=== PATIENT | female | born 1990 | race Caucasian/White ===

== ENCOUNTER 2022-07-13 08:37 | Outpatient (CLI) | payer OTHER, SELFPAY ==
--- NOTE | ~2022-07-13 | US_ITS ---
EXAMINATION: US thyroid DATE: 07/13/2022 09:46 INDICATION: Thyroid nodules. TECHNIQUE: Multiple ultrasound images of the thyroid were obtained. COMPARISON: None. FINDINGS: The right thyroid lobe measures 4.2 x 1.1 x 1.8 cm. The left thyroid lobe measures 4.5 x 1.5 x 1.6 c m. The thyroid demonstrates heterogeneous hypoechogenicity. Vascularity is increased. No discrete no dule. IMPRESSION: 1. Heterogeneous, hypervascular thyroid, consistent with chronic lymphocytic (Saundra) thyroiditis. Reviewed, dictated and finalized at location A. UITMENT MANAGER IMPRESSION: 1. Heterogeneous, hypervascular thyroid, consistent with chronic lymphocytic (H ashimoto) thyroiditis.
== END 2022-07-13 08:38 | disposition home or self-care (01) ==
LOC: CHSIMG 08:40
PROVIDERS: PCP Internal Medicine; Visit Provider Internal Medicine
DX: E04.1 Nontoxic single thyroid nodule (principal)
CPT/HCPCS: 76536

== ENCOUNTER 2022-10-04 14:58 | Outpatient (CLI) | payer OTHER, SELFPAY ==
--- NOTE | ~2022-10-04 | US_ITS ---
EXAMINATION: US soft tissue head and neck DATE: 10/04/2022 15:21 INDICATION: Left submandibular mass. TECHNIQUE: Multiple grayscale and Doppler ultrasound images of the neck were obtained. COMPARISON: None FINDINGS: The submandibular glands are normal. There is no abnormal mass or lymphadenopathy. IMPRESSION: 1. No abnormal mass or lymphadenopathy. Reviewed, dictated and finalized at location A. GER TRANSFUSION
== END 2022-10-04 14:59 | disposition home or self-care (01) ==
LOC: CHSIMG 14:59
PROVIDERS: PCP Internal Medicine; Visit Provider Internal Medicine
DX: R59.0 Localized enlarged lymph nodes (principal)
CPT/HCPCS: 76536

== ENCOUNTER 2023-02-27 08:26 | Outpatient (CLI) | payer BC, SELFPAY | END 2023-02-27 08:27 | disposition home or self-care (01) | LOC: CHSLAB 08:29 | PROVIDERS: PCP Internal Medicine; Visit Provider Obstetrics & Gynecology | DX: O20.9 Hemorrhage in early pregnancy, unspecified (principal); Z3A.00 Weeks of gestation of pregnancy not specified | CPT/HCPCS: 36415; 84144; 84702 ==

== ENCOUNTER 2023-02-28 09:14 | Outpatient (CLI) | payer BC, SELFPAY ==
--- NOTE | ~2023-02-28 | US_ITS ---
EXAMINATION: US OB <=14 wk fetus w TV DATE: 02/28/2023 10:29 INDICATION: with inconclusive viability, first trimester TECHNIQUE: Real-time pelvic transabdominal and transvaginal ultrasound was performed. COMPARISON: None. FINDINGS: The uterus measures 8.5 x 6.8 x 5.0 cm. There is an intrauterine gestational sac. A yolk sa c is identified. heart motion is identified measuring 139 beats per minute (bpm) by M-mode Dopp ler. The crown rump length measures 9 mm, which correlates with an estimated gestational age of 7 weeks and 0 day(s) (+/-) 3 day(s). The right ovary measures 2.6 x 2.6 x 1.7 cm. The left ovary measures 3.0 x 2.0 x 2.8 cm. There is nor mal vascular flow in the ovaries. There is no free fluid in the pelvis. IMPRESSION: 1. Live intrauterine with an estimated gestational age of 7 weeks and 0 day(s) (+/-) 3 day( s) and an estimated delivery date of 10/17/2023. Reviewed, dictated and finalized at location L. IMPRESSION: 1. Live intrauterine with an estimated gestational age of 7 weeks and 0 day(s) (+/-) 3 day(s) and an estimated delivery date of 10/17/2023.
== END 2023-02-28 09:15 | disposition home or self-care (01) ==
LOC: CHSLAB 09:18
PROVIDERS: PCP Internal Medicine; Visit Provider Obstetrics & Gynecology
DX: O36.80X0 Pregnancy with inconclusive fetal viability, not applicable or unspecified (principal); O20.9 Hemorrhage in early pregnancy, unspecified; Z3A.01 Less than 8 weeks gestation of pregnancy
CPT/HCPCS: 36415; 76801; 76817; 86850; 86900; 86901

== ENCOUNTER 2023-06-02 15:45 | Outpatient (CLI) | payer BC, SELFPAY ==
[2023-06-02 16:26] LABS: Thyroid Stimulating Hormone 0.14 uIU/mL (0.36-3.74)
[2023-06-08 14:50] LABS: T4 Thyroxine 16.6 mcg/dL (5.9-10.3)
== END 2023-06-02 15:46 | disposition home or self-care (01) ==
LOC: CHSLAB 15:49
PROVIDERS: PCP Internal Medicine
DX: Z34.90 Encounter for supervision of normal pregnancy, unspecified, unspecified trimester (principal); E03.9 Hypothyroidism, unspecified; E06.3 Autoimmune thyroiditis
CPT/HCPCS: 36415; 84436; 84443

== ENCOUNTER 2023-07-24 09:52 | Outpatient (CLI) | payer BC, SELFPAY ==
[2023-07-24 11:12] LABS: Basophils Absolute Auto 0.01 K/mm3 (0.00-0.10); Basophils Percent Auto 0.1 % (0.0-1.0); Eosinophils Absolute Auto 0.03 K/mm3 (0.02-0.50); Eosinophils Percent Auto 0.3 % (1.0-6.0); Hematocrit 37.5 % (35.0-49.0); Immature Granulocyte Absolute 0.08 K/mm3 (0.00-0.00); Immature Granulocyte Percent A 0.8 % (0.0-0.0); Lymphocytes Absolute Auto 1.39 K/mm3 (1.10-4.50); Lymphocytes Percent Auto 13.9 % (18.0-42.0); Mean Corpuscular Hemoglobin 28.6 pg (27.0-31.0); Mean Corpuscular Volume 89.3 fL (78.0-102.0); Mean Platelet Volume 9.6 fl (9.2-11.8); Monocytes Absolute Auto 0.66 K/mm3 (0.10-0.90); Monocytes Percent Auto 6.6 % (2.0-11.0); Neutrophils Absolute Auto 7.8 K/mm3 (1.7-7.2); Neutrophils Percent Auto 78.3 % (50.0-70.0); Platelet Count Result 288 K/mm3 (150-420); Red Cell Distribution Width 14.1 % (11.6-14.4)
[2023-07-24 11:52] LABS: Thyroid Stimulating Hormone 0.73 uIU/mL (0.36-3.74)
[2023-07-24 11:57] LABS: Glucose 1 Hour PP 50gm Dose 96 mg/dL (70-130)
[2023-07-24 11:58] LABS: HIV 1 P24 AG Negative (Negative); HIV 1/2 AB Negative (Negative)
[2023-07-25 14:21] LABS: Free T3 2.47 pg/mL (2.18-3.98)
== END 2023-07-24 09:53 | disposition home or self-care (01) ==
LOC: CHSLAB 09:53
PROVIDERS: PCP Internal Medicine; Visit Provider Obstetrics & Gynecology
DX: Z34.90 Encounter for supervision of normal pregnancy, unspecified, unspecified trimester (principal); E03.9 Hypothyroidism, unspecified
CPT/HCPCS: 36415; 82947; 84439; 84443; 84481; 85025; 87806

== ENCOUNTER 2023-10-18 17:07 | Inpatient (IN) | payer BC, SELFPAY ==
[2023-10-18] VITALS (10 sets, daily range): BP systolic 118–132; BP diastolic 75–87; PULSE 84–95; TEMP 36.6; BMI 31.8
--- NOTE | 2023-10-18 17:39 | LDADM ---
This patient, Emilee Amado, was admitted to Labor/Delivery/Recovery 104 on 10/18/23 at 17:07. Plans for labor, pain management and were discussed with patient. Patient/family oriented to hospital policies and general routines including ID bracelet, bed and alarms, visiting hours, pain management, procedures, bathroom and other care routines, personal items, smoking policy, room service/diet and guest tray routines, infant security routines, and visiting hours. Patient/Family are encouraged to report perceived risks to care and to ask questions if they do not understand what they are told or what they should do. See OBIX for further documentation.
[2023-10-18] MEDS: DINOPROSTONE 10 MG VAG INSERT VAGINAL (18:11)
--- NOTE | 2023-10-18 18:20 | P.PNAN_ITS ---
Anes - Eval Pre Procedure Procedure: Labor epidural Date/Time: 10/18/23 18:20 Surgeon: Barrera Preop Diagnosis: Abdominal pain with contractions Pre Op Diagnosis: IOL Patient Data Age: 33 Gender: F Height: 1.75 m Weight: 98 kg Last Vital Signs Pulse 88 10/18/23 18:16 BP 132/83 10/18/23 18:16 O2 Del Method Room Air 10/18/23 17:38 Allergies Allergy/AdvReac Type Severity Reaction Status Date / Time No Known Allergies Allergy Verified 10/17/23 10:09 Home Medications Medication Instructions Recorded Confirmed Type levothyroxine 125 mcg capsule 137 mcg PO DAILY 08/03/22 10/18/23 History docosahexaenoic acid 200 mg mg PO 03/06/23 10/17/23 History capsule ( DHA) aspirin 81 mg tablet,delayed 81 mg PO DAILY #90 tabs 03/30/23 10/18/23 Rx release prenat.vits,kelly,faf-yyrv-jadju tablet 09/21/23 10/17/23 History : gestational age HCG: positive Patient hx anesthesia problems: none Family hx anesthesia problems: none Results Review: All pre-operative results and documents have been reviewed as part of the pre- operative evaluation. [facility] Past Medical History Medical History Adult hypothyroidism Degenerative disk disease Obesity Surgical History Surgical History No significant past surgical history Family History Family History Grandparent Diabetes mellitus Heart disease Hypertension Mother Diabetes mellitus Hypertension High cholesterol Social History Social History Smoking status: Never smoker Alcohol intake: never Drinks per week: 0 Substance use: never Do You Feel Safe in your Home?: Yes Lack of Transportation: No Lack of Food: Never True Current Housing: I Have Housing Concerned About Future Housing: No Difficulty Paying Gas/Electric Bills: No Difficulty Paying for Meds: No Currently Unemployed: No Education: Master's Degree or Higher Difficulty w/ Childcare or Family Care: No Living arrangements: with family Occupation/Education: occupation 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
[2023-10-18 18:25] LABS: Basophils Percent Auto 0.2 % (0.2-1.2); Eosinophils Absolute Auto 0.1 K/mm3 (0-0.3); Eosinophils Percent Auto 0.5 % (0-4.4); Hematocrit 40.7 % (37.0-47.0); Hemoglobin 12.8 g/dL (12.0-15.0); Immature Granulocyte Absolute 0.07 K/mm3 (0.00-0.031); Immature Granulocyte Percent A 0.6 % (0-0.5); Lymphocytes Absolute Auto 2.97 K/mm3 (0.9-3.2); Lymphocytes Percent Auto 23.6 % (18.3-44.2); Mean Corpuscular HGB Conc 31.4 g/dl (32-36); Mean Corpuscular Hemoglobin 27.4 pg (26-34); Mean Corpuscular Volume 87.2 fl (80-100); Monocytes Absolute Auto 0.9 K/mm3 (0.1-0.6); Monocytes Percent Auto 7.1 % (2.6-8.5); Neutrophils Absolute Auto 8.5 K/mm3 (1.3-6.7); Platelet Count Result 373 k/mm3 (150-375); Red Blood Count 4.67 M/mm3 (4.2-5.4); Red Cell Distribution Width 15.7 % (11.5-14.5); White Blood Count 12.6 K/mm3 (4.5-10.0)
[2023-10-19] VITALS (27 sets, daily range): BP systolic 105–148; BP diastolic 60–115; PULSE 91–129; RESP 18; TEMP 36.2–36.9; O2SAT 10–100
--- NOTE | 2023-10-19 06:39 | PM.IMHP ---
H&P: HPI History of Present Illness Date/Time: 10/19/23 07:15 Chief Complaint: Induction of labor Narrative: Emilee is a 33yo @ 41.0wks who presented for IOL. She received cervidil for cervical ripening overnight. She reports good movement. No VB or LOF. Her is complicated by: - Hypothyroidism on levothyroxine and ASA Review of Systems Constitutional: Constitutional: Denies chills, Denies fever(s) and Denies headache(s) Eyes: Eyes: Denies change in vision ENT: Denies headache(s) Cardiovascular: Cardiovascular: Denies chest pain and Denies dyspnea Respiratory: Respiratory: Denies dyspnea Genitourinary: Genitourinary: Denies abnormal vaginal bleeding and Denies vaginal discharge Neurologic: Denies headache(s) Psychiatric: Psychiatric: Denies anxiety and Denies depression [facility] Past Medical History Medical History Adult hypothyroidism Degenerative disk disease Obesity Surgical History Surgical History No significant past surgical history Family History Family History Grandparent Diabetes mellitus Heart disease Hypertension Mother Diabetes mellitus Hypertension High cholesterol Social History Social History Smoking status: Never smoker Alcohol intake: never Drinks per week: 0 Substance use: never Do You Feel Safe in your Home?: Yes Lack of Transportation: No Lack of Food: Never True Current Housing: I Have Housing Concerned About Future Housing: No Difficulty Paying Gas/Electric Bills: No Difficulty Paying for Meds: No Currently Unemployed: No Education: Master's Degree or Higher Difficulty w/ Childcare or Family Care: No Living arrangements: with family Occupation/Education: occupation 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 Gender identity (if verbalized by the patient): Female Sexual Orientation (if Verbalized by the Patient): Straight or Heterosexual Spiritual care concerns: No Meds Home Medications and Allergies Home Medications Medication Instructions Recorded Confirmed Type levothyroxine 125 mcg capsule 137 mcg PO DAILY 08/03/22 10/18/23 History docosahexaenoic acid 200 mg mg PO 03/06/23 10/17/23 History capsule ( DHA) aspirin 81 mg tablet,delayed 81 mg PO DAILY #90 tabs 03/30/23 10/18/23 Rx release prenat.vits,kelly,gpl-demr-pehat tablet 09/21/23 10/17/23 History Allergies Allergy/AdvReac Type Severity Reaction Status Date / Time No Known Allergies Allergy Verified 10/17/23 10:09 Vital Signs Vital Signs - 24 hr 10/18/23 17:38 10/18/23 18:16 10/18/23 18:31 Pulse Rate 88 90 Blood Pressure 132/83 124/85 Oxygen Delivery Room Air 10/18/23 18:46 10/18/23 19:01 10/18/23 19:16 Pulse Rate 84 84 85 Blood Pressure 118/75 123/81 129/81 Oxygen Delivery 10/18/23 19:31 10/18/23 19:46 Pulse Rate 95 88 Blood Pressure 130/85 127/87 Oxygen Delivery Exam Const: General: cooperative, no acute distress and obese Nutritional Appearance: obese Orientation/consciousness: patient oriented x3 Resp: Effort & Inspection: normal respiratory effort Cardio: Rate: regular rate GI: GI Palp: No abdominal tenderness : Other: FHT's: 130's/ mod betsy/ + accels/ no decels - cat 1 TOCO: ctxs q3min Cervix: 3/80/-2 Membranes: AROM, thin mec 0715 Presentation: cephalic Skin: General skin exam: normal color Neuro: General: patient oriented x3 Extrem: General: normal to inspection Psych: Appearance: grossly normal Affect: normal affect Attitude: cooperative H&P: Results Labs Labs: Short CBC 10/18/23 Range/Units 17:26 WBC 12.6 H (4.5-10.0) K/mm3 Hgb 12.8 (12.0-15.0) g/dL Hct 40.7 (37.0-47.0) % Plt Count
[2023-10-19] MEDS: LACTATED RINGERS 1,000 ML 125 ML IV CONT (07:25)
[2023-10-19] MEDS: OXYTOCIN 30 UNITS/NS 500 ML 30 UNITS/500 ML BAG 6 UNITS IV CONT (07:25)
[2023-10-19] MEDS: LEVOTHYROXINE SODIUM 112 MCG, LEVOTHYROXINE SODIUM 25 MCG 137 MCG PO (07:26)
[2023-10-19] MEDS: LIDOCAINE HCL 1% LOCAL INJ 20 ML VIAL (13:42)
[2023-10-19] MEDS: OXYTOCIN 30 UNITS/NS 500 ML 30 UNITS/500 ML BAG 125 UNITS IV CONT (14:02)
--- NOTE | 2023-10-19 14:20 | P.PCNOB_ITS ---
OB - Vaginal Delivery Note Procedure Delivery date: 10/19/23 Events: Other (Induction for late term) Induction method: Per Cervidil Protocol Delivery augmentation: Rupture of Membranes and Pitocin Delivery monitor: External FHT and External Uterine Route of delivery: Episiotomy description: None Laceration Description: Perineal - 2nd Degree Delivery repair: vicryl Specimen: Yes (placenta) Quantitative Blood Loss (ml): 300 Anesthesia type: Local Disposition: Floor Complications: No immediate complications Baby Date of : 10/19/23 Time of : 13:28 Weeks of gestation at delivery: 41 Infant gender: Male Weight (pounds): 8 Weight (ounces): 12 presentation: vertex (right hand by face) position: Right Occiput Anterior Placenta delivery description: Expressed Cord Vessel Description: 3 Vessels and Delayed Cord Clamping score one minute: 8 score five minutes: 9 Narrative: Emilee rapidly progressed to 9 cm and began having the urge to push. She did not have an epidural, but controlled her pain/breathing until she was fully dilated. She pushed with great maternal effort for approximately 1.5 hours. She delivered the 's head over intact perineum and no nuchal cord was palpated. She easily delivered the 's shoulders and body without complication. Thick meconium was noted and the pediatric team was at bedside. He was immediately placed skin to skin and had spontaneous cry, therefore the pediatric team did bulb suction his mouth and nose. Delayed cord clamping was performed. The umbilical cord was then doubly clamped and cut. A segment of the cord was collected for cord gases. The remaining cord blood was collected for typing. With Pitocin running and gentle downward traction on the cord, the placenta delivered without complications. She was examined and a smal l second-degree perineal laceration was identified. She was anesthetized with 1% lidocaine without epinephrine and the laceration was repaired in the normal fashion using 2-0 Vicryl. Slight increase in bleeding was noted, therefore bimanual massage was performed and uterine sweep removed a couple clots. The uterus was then noted to be firm with minimal bleeding. Sponge, lap, instrument, and needle counts were correct at the end of the procedure. Mom and baby were left bonding in the birthing suite in stable condition. [facility] Delivery Billing Delivery Delivery: Delivery Charge
[2023-10-19 15:12] LABS: Rapid Plasma Reagin Non-Reactive (NonReactive)
[2023-10-19] MEDS: BENZOCAINE 20% AER SPR (*SP) 56 GM CAN 1 SPRAY TOPICAL (15:45)
[2023-10-19] MEDS: WITCH HAZEL 40 PADS 1 PAD TOPICAL (15:45)
[2023-10-19] MEDS: DOCUSATE SODIUM 100 MG CAPSULE PO (20:06)
[2023-10-19] MEDS: ACETAMINOPHEN 325 MG TABLET 650 MG PO (20:06)
[2023-10-19] MEDS: IBUPROFEN 600 MG TABLET PO (20:07)
[2023-10-19] MEDS: LANOLIN (LANSINOH) 7.5 GM CREAM 1 APPLIC TOPICAL (20:08)
[2023-10-20 04:20] VITALS: BP 122/74; PULSE 94; RESP 18; TEMP 36.7; O2SAT 100
[2023-10-20] MEDS: IBUPROFEN 600 MG TABLET PO ×3 (04:25→23:45)
[2023-10-20] MEDS: ACETAMINOPHEN 325 MG TABLET 650 MG PO ×3 (04:25→23:45)
[2023-10-20 05:41] LABS: Hematocrit 35.5 % (37.0-47.0); Hemoglobin 11.3 g/dL (12.0-15.0)
[2023-10-20] MEDS: LEVOTHYROXINE SODIUM 25 MCG TABLET PO (07:14)
[2023-10-20] MEDS: LEVOTHYROXINE SODIUM 112 MCG TABLET PO (07:14)
[2023-10-20 08:10] VITALS: BP 122/74; PULSE 98; RESP 16; TEMP 36.6; O2SAT 98
--- NOTE | 2023-10-20 08:33 | PM.OBPNVD ---
OB - PN: Subj Subjective Date/time seen: 10/20/23 08:32 Narrative: PPD#1 Emilee reports doing well today. 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 Her pain is controlled. She is tolerating regular diet, voiding, passing gas, and ambulating without issues. She is breast feeding. She would like her son circumcised. OB - PN: Obj Data Labs 10/20/23 04:13 Labs: Laboratory Results - last 24 hr 10/18/23 10/20/23 17:26 04:13 Hgb 11.3 L Hct 35.5 L RPR Non-reactive OB - PN A/P Assessment and Plan (1) Normal vaginal delivery of first : Code(s): O80 - Encounter for full-term uncomplicated delivery Status: Acute Plan day: 1 Plan: routine care and discharge home (tomorrow) Comments: - PO pain meds - ambulation/hydration encouraged - reg diet - Continue putting baby to breast q2-3h Time Spent With Patient Time: Total time spent is greater than 50% in coordination of care (as documented) at patient's floor/unit and/or counseling patient: Review of Systems Constitutional: Constitutional: Denies chills, Denies fever(s) and Denies headache(s) Eyes: Eyes: Denies change in vision ENT: Denies dizziness and Denies headache(s) Cardiovascular: Cardiovascular: Denies chest pain, Denies palpitations and Denies dyspnea Respiratory: Respiratory: Denies cough and Denies dyspnea Gastrointestinal: Gastrointestinal: Denies nausea and Denies vomiting Neurologic: Denies dizziness and Denies headache(s) Endocrine: Endocrine: Denies palpitations Exam Const: General: cooperative, comfortable and no acute distress Orientation/consciousness: patient oriented x3 Resp: Effort & Inspection: normal respiratory effort Auscultation: clear to auscultation bilaterally Cardio: Rate: regular rate GI: Inspection: non-distended GI Palp: No abdominal tenderness and Yes Soft to palpation Auscultation: normal bowel sounds : Other: fundus firm Skin: General skin exam: normal color Neuro: General: patient oriented x3 Extrem: General: normal to inspection Psych: Appearance: grossly normal Affect: normal affect Attitude: cooperative
[2023-10-20] MEDS: MULTIVIT/MIN/PREN/FOL AC/IRON TABLET 1 TAB PO (09:16)
[2023-10-20] MEDS: DOCUSATE SODIUM 100 MG CAPSULE PO ×2 (09:16→17:09)
--- NOTE | 2023-10-20 10:46 | PC.NURSE ---
[id number] Mother is demonstrating her ability to independently latch with appropriate positioning, alignment, to the left breast using cradle positioning. She denies any nipple pain (tenderness rated 1 on 0-10 scale), responsively , and visualization of swallowing is observed. is currently meeting outcomes for weight, output, jaundice, blood sugar and feeding frequencies of 8-12 times in 24 hours. Discussed what to watch for and priorities for calling the infant care provider using the feeding sheet as a reference. The nipple is not misshaped after is detached from the breast. Reinforced understanding of milk production, transition of milk, signs of adequate intake, transition of stool, prevention/relief of engorgement, plugged ducts, mastitis, responsive watching for feeding cues, the different methods of stimulating to breastfeed 1-3 hours after the start of the last feeding, community resources, and when to call a provider using the resource of the feeding sheet along with the mom and baby guide. Mother declines any additional assistance or education at this time. Mother is encouraged to call for assistance if her infant doesn?t latch, pain with latching, questions or concerns. Mother voiced understanding of information shared along with the mom/baby guide for an additional resource. Reported to the Primary RN.
[2023-10-20 12:00] VITALS: BP 117/70; PULSE 90; RESP 16; TEMP 36.4; O2SAT 98
[2023-10-20 20:00] VITALS: BP 112/65; PULSE 85; RESP 16; TEMP 37; O2SAT 98
[2023-10-21] MEDS: LEVOTHYROXINE SODIUM 25 MCG TABLET PO (06:33)
[2023-10-21] MEDS: LEVOTHYROXINE SODIUM 112 MCG TABLET PO (06:47)
[2023-10-21 08:54] VITALS: BP 120/80; PULSE 80; RESP 12; TEMP 36.9; O2SAT 99
--- NOTE | 2023-10-21 09:11 | PM.OBDSVD ---
DS: Admitting Diagnosis Discharge Date 10/21/23 Admitting Diagnosis Late term Induction of labor DS: Discharge Diagnosis Discharge Diagnosis (1) Normal vaginal delivery of first : Code(s): O80 - Encounter for full-term uncomplicated delivery Status: Acute OB - DS: Summary OB Procedures : Ultrasound OB Procedures Intrapartum: Spontaneous Vag Delivery OB Procedures: : None Peripartum Data Infant Delivery Method: Natural Vaginal Laceration Description: Perineal - 2nd Degree Episiotomy description: None complications: none 1: Gender: Male Disposition of : home Status at Discharge Functional status at discharge: independent ambulation Overall status at discharge: patient is back to baseline Time Spent with Patient Time attestation: Total time spent providing and/or coordinating discharge services: Time spent: Less than 30 minutes Exam Const: General: cooperative, healthy appearing, comfortable and no acute distress Orientation/consciousness: patient oriented x3 Resp: Effort & Inspection: normal respiratory effort Auscultation: clear to auscultation bilaterally Cardio: Rate: regular rate GI: Inspection: non-distended GI Palp: No abdominal tenderness and Yes Soft to palpation Auscultation: normal bowel sounds : Other: fundus firm Skin: General skin exam: normal color Neuro: General: patient oriented x3 Extrem: General: normal to inspection Psych: Appearance: grossly normal Affect: normal affect Attitude: cooperative DS: Data Data Completed and Pending Pending studies at discharge: Pending at discharge 10/19/23 13:41 Surgical [PTH] Routine Discharge Plan Discharge Attending physician on discharge: Mya Rust Discharging Clinician: Mya Rust Anticipated Discharge Date/Time: 10/21/23 11:00 Patient Disposition: Home, Self-Care Activity: may shower and pelvic rest Diet: regular Patient Instructions: Vaginal Delivery (GEN) Stand Alone Forms: General Discharge Information Follow-up/Referrals: Mya Rust MD [Physician] - 4 Weeks Discharge Medications: New acetaminophen 325 mg Tablet 650 mg PO Q6H PRN (Reason: Mild Pain (1-3) Or Headache) Qty: 60 0RF docusate sodium 100 mg Capsule 100 mg PO BID PRN (Reason: Constipation) Qty: 90 0RF ibuprofen 600 mg Tablet 600 mg PO Q6H PRN (Reason: Cramping) Qty: 40 0RF Continued levothyroxine 125 mcg capsule 137 mcg PO DAILY #2 Tablet 1 tablet DAILY Discontinued aspirin 81 mg tablet,delayed release (DR/EC) 81 mg PO DAILY Qty: 90 3RF Date of admission: 10/18/23 17:07 Primary Care Provider: Jennifer Krishnan Admitting Provider: Mya Rust Attending physician on admission: Mya Rust Condition: Stable
[2023-10-21] MEDS: DOCUSATE SODIUM 100 MG CAPSULE PO (10:09)
[2023-10-21] MEDS: IBUPROFEN 600 MG TABLET PO (10:09)
[2023-10-21] MEDS: MULTIVIT/MIN/PREN/FOL AC/IRON TABLET 1 TAB PO (10:09)
[2023-10-21] MEDS: ACETAMINOPHEN 325 MG TABLET 650 MG PO (10:11)
[2023-10-23 11:10] VITALS: BP 128/83; PULSE 91; RESP 18; TEMP 36.8; O2SAT 100
== END 2023-10-21 13:45 | disposition home or self-care (01) | DRG 807 ==
LOC: ANHLDR 17:22 → ANHOB2 10-19 16:35
PROVIDERS: Admitting Provider Obstetrics & Gynecology; PCP Internal Medicine; Visit Provider Obstetrics & Gynecology
DX: O99.284 Endocrine, nutritional and metabolic diseases complicating childbirth (principal); Z37.0 Single live birth; E03.9 Hypothyroidism, unspecified; O70.1 Second degree perineal laceration during delivery; O77.0 Labor and delivery complicated by meconium in amniotic fluid; Z3A.41 41 weeks gestation of pregnancy
CPT/HCPCS: 36415; 85014; 85018; 85025; 86592; 86850; 86900; 86901; 88307; A9270; J2590; J2795; J7120

== ENCOUNTER 2024-07-25 08:43 | Outpatient (CLI) | payer BC, SELFPAY ==
[2024-07-25 09:48] LABS: Cholesterol 249 mg/dL (0-200); HDL Direct 54 mg/dL (40-60); LDL Cholesterol Calculated 177 mg/dL (<130); Triglycerides 92 mg/dL (0-150)
[2024-07-25 09:49] LABS: Hemoglobin A1C 5.4 % (<5.7)
[2024-07-25 10:18] LABS: Thyroid Stimulating Hormone Reflex 0.26 u/IU/mL (0.36-3.74)
[2024-07-25 10:36] LABS: Free T4 Free Thyroxine Reflex 1.16 ng/dL (0.76-1.46)
[2024-07-27 04:19] LABS: Vitamin D 25 Hydroxy 25 ng/mL (30-100)
== END 2024-07-25 08:44 | disposition home or self-care (01) ==
PROVIDERS: PCP Internal Medicine; Visit Provider Obstetrics & Gynecology
DX: F41.9 Anxiety disorder, unspecified (principal)
CPT/HCPCS: 36415; 80061; 82306; 83036; 84439; 84443

== ENCOUNTER 2025-03-10 07:58 | Outpatient (CLI) | payer BC, SELFPAY ==
--- OUTSIDE RECORDS SUMMARY | 2025-03-10 08:04 | XMS_ITS | Referral Summary ---
Author Organization [facility] Address [address] [place] [address] Care Team Providers Care Shade Bander Name Role Phone Jennifer Krishnan MD Unavailable [phone] Jennifer Krishnan MD Primary Care Provider [phone] Allergies No known active allergies Medications escitalopram (LEXAPRO) 10 mg tablet 01/08/2024 Active drospirenone, contraceptive, (Slynd) tablet tablet Take 1 each (4 mg total) by mouth daily Active levothyroxine (SYNTHROID) 125 mcg tabletIndication s:Hypothyroidism , unspecified type Take 1 tablet (125 mcg total) by mouth daily 90 tablet 3 12/02/2024 Active Active Problems Problem Noted Date Diagnosed Date Acquired hypothyroidism 06/11/2018 Assessment & Plan (06/13/2018 7:53 AM CDT): Clinically euthyroid, with numerous adjustments in her medication. We need results of her recent labs from her PCP. Non-toxic multinodular goiter 11/16/2010 Overview (11/30/2017): Description: very high TPO Ab level; 1.8 cm R lobe nodule; subclinical hypothyroidism Assessment & Plan (06/13/2018 7:53 AM CDT): No local symptoms or palpable nodules. 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 on file Not on file Last Filed Vital Signs Vital Sign Reading Time Taken Comments Blood Pressure 125/84 11/29/2024 1:15 PM CDT Pulse 77 11/29/2024 1:15 PM CDT Temperature 36.5 C (97.7 F) 11/29/2024 1:15 PM CDT Respiratory Rate - - Oxygen Saturation - - Inhaled Oxygen Concentration - - Weight 83.2 kg (183 lb 6.4 oz) 11/29/2024 1:15 P M CDT Height 175.3 cm (5' 9) 11/29/2024 1:15 PM CDT Body Mass Index 27.08 11/29/2024 1:15 PM CDT Plan of Treatment Not on file Insurance [employer] OOS [employer] ACCESS OOS Care Teams Shade Bander Relationship Specialty Start Date End Date Jennifer Krishnan MD [address] [place] [address] PCP - General Internal Medicine 04/21/23 Jennifer Krishnan MD [address] [place] [address] Referring Physician Internal Medicine 06/11/18
--- OUTSIDE RECORDS SUMMARY | 2025-03-10 08:04 | XMS_ITS | Clinical Summary ---
Author Organization [facility] Address [address] [place] [address] Care Team Providers Care House Mover Name Role Phone Jennifer Krishnan MD Unavailable [phone] Jennifer Krishnan MD Primary Care Provider [phone] Allergies No known active allergies Medications escitalopram [...] get the results of her recent ultrasound Surgical History Surgery Date Site/Laterality Comments NO PAST SURGERIES Medical History Medical History Date Comments Vitamin D deficiency Vitamin D d eficiency - (Added by TW Conv) Hypothyroidism Family History Medical History Relation Name Comments Cancer Maternal Grandfather Champ Raza Heart attack Maternal Grandfather Champ Raza Heart disease Maternal Grandfather Champ Raza Cancer Maternal Grandmother Bev Raza Hypertension Maternal Grandmother Bev Raza Thyroid disease Maternal Grandmother Bev Raza Diabetes Mother Ivory Rosales Heart disease Mother Ivory Rosales Hypertension Mother Ivory Rosales Thyroid disease Mother Ivory Rosales Hypertension Mother's Brother 1 Diabetes Mother's Brother 2 Ba Ry Heart disease Mother's Brother 2 Ba Ry Hypertension Mother's Brother 2 Ba Ry Hypertension Mother's Brother 3 Brandon Raza Diabetes type II Other 1 Type 2 Diab etes Mellitus - MGF, PGF, many others (Added by TW Conv) Lymphoma Other 2 Malignant Lymph wilmar - pancreatic - GM and GF (Added by TW Conv) Thyroid disease Other 3 Thyroid Diso rder - ? hypothyroidism - mother, MGM, great aunts, uncle (Added by TW Conv) Heart disease Other 4 Heart Disease - grandparents, many others (Added by TW Conv) Cancer Paternal Grandfather Dinesh Rosales Cancer Paternal Grandmother Pebbles Rosales Hypertension Sister Janett Rosales Relation Name Status Comments Maternal Grandfather Champ Raza Maternal Grandmother Bev Raza Mother Ivory Rosales Mother's Brother 1 Mother's Brother 2 Ba Panller Mother's Brother 3 Brandon Raza Other 1 Other 2 Other 3 Other 4 Paternal Grandfather Dinesh Rosales Paternal Grandmother Pebbles Rosales Sister Janett Rosales Social History Tobacco Use Types Packs/Day Years Used Date Smoking Tobacco: Never Smokeless Tobacco: Never Tobacco Cessation:Counseling Given: Not Answered Alcohol Use Standard Drinks/Week Comments No 0 (1 standard drink = 0.6 oz pur e alcohol) Comments Unknown Sex and Gender Information Value Date Recorded Sex Assigned at Not on file Legal Sex Female 2:51 AM WELT SOLE LAYER Gender Identity Not on file Sexual Orientation Not on file 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 on 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 on file Obstetrics History Para Term AB IAB SAB Ectopic Multiple Livin g Live Births 1 Date Outcome GA Total Labor Labor/2nd/3rd Weight Sex Type Anes PTL Kenia A1 A5 Name Clin Last Filed Vital Signs Vital Sign Reading [...] 11/29/2024 1:15 PM CDT Plan of Treatment Health Maintenance Due Date Last Done Comments Cervical Cancer Screening 1990 Depression Screening 1990 Hepatitis C Screening 1990 Varicella Vaccines (1 of 2 - 13+ 2-dose series) 2003 Regular Well Visit/Exam 18-64 2008 Influenza Vaccine (#1) 2025 DTaP/Tdap/Td Vaccine (7 - Td or Tdap) 06/12/2028 06/12/2018, 11/01/1995, 01/01/1992, Additional history exists Hepatitis B Screening Completed 09/01/1999 , 03/31/1999, 03/03/1999 HPV Vaccines Aged Out No longer eligi ble based on patient's age to complete this topic Pneumococcal vaccine <65 Aged Out No longer eligible based on patient's age to complete this topic Insurance CO Everywhere OOS CO Everywhere OOS Care Teams House Mover Relationship Specialty Start Date End Date Jennifer Krishnan MD [address] [place] [address] PCP - General Internal Medicine 04/21/23 Jennifer Krishnan MD [address] [place] [address] Referring Physician Internal Medicine 06/11/18
[2025-03-10 08:32] LABS: Cholesterol 244 mg/dL (0-200); HDL Direct 50 mg/dL; Triglycerides 217 mg/dL (<150)
[2025-03-10 08:49] LABS: Free T3 3.31 pg/mL (2.18-3.98)
[2025-03-10 08:50] LABS: Free T4 Free Thyroxine 1.22 ng/dL (0.78-2.19)
[2025-03-10 09:04] LABS: Thyroid Stimulating Hormone 1.640 uIU/mL (0.465-4.680)
== END 2025-03-10 07:59 | disposition home or self-care (01) ==
LOC: CHSLAB 08:02
PROVIDERS: PCP Internal Medicine
DX: E78.5 Hyperlipidemia, unspecified (principal); E03.9 Hypothyroidism, unspecified; R94.6 Abnormal results of thyroid function studies
CPT/HCPCS: 36415; 80061; 84439; 84443; 84481

== ENCOUNTER 2025-03-14 13:05 | Outpatient (CLI) | payer BC, SELFPAY ==
--- NOTE | ~2025-03-14 | US_ITS ---
US thyroid INDICATION: Directly goiter TECHNIQUE: Real-time sonographic images of the thyroid gland were obtained. COMPARISON: No prior studies for comparison. FINDINGS: The right thyroid lobe measures 3.2 x 1 x 1.6 cm. The left thyroid lobe measures 3.1 x 1.5 x 1.3 cm. There is heterogeneous echotexture and echogenicity throughout the thyroid gland. No discr ete nodules identified. Normal vascular flow is present. IMPRESSION: 1. Unremarkable thyroid without discrete nodule or abnormal vascularity. Reviewed, dictated and finalized at location B.
--- OUTSIDE RECORDS SUMMARY | 2025-03-14 13:08 | XMS_ITS | Clinical Summary ---
Author Organization [facility] Address [address] [place] [address] Care Team Providers Care Paste Up Worker Name Role Phone Jennifer Krishnan MD Unavailable [phone] Jennifer Krishnan MD Primary Care Provider [phone] Allergies No known active allergies Medications escitalopram [...] get the results of her recent ultrasound Encounters Date Type Department Care Team Description 03/12/[address] [facility] Endocrinology Metabolism and Lipid [address] 5[address] [place] [address] [place] [address] Rosa De La Torre RN Lab Results from Last 3 Months Surgical History Surgery Date Site/Laterality Comments NO PAST SURGERIES Medical History Medical History Date Comments Vitamin D deficiency Vitamin D d eficiency - (Added by TW Conv) Hypothyroidism Family History Medical History Relation Name Comments Cancer Maternal Grandfather Champ Raza Heart attack Maternal Grandfather Champ Sharmaer Heart disease Maternal Grandfather Champ Raza Cancer Maternal Grandmother Bev Ry Hypertension Maternal Grandmother Bev Ry Thyroid disease Maternal Grandmother Bev Raza Diabetes [...] Mother's Brother 1 Mother's Brother 2 Ba Ry Mother's Brother 3 Brandon Raza Other 1 [...] on file 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 Gender Identity Not on file Sexual Orientation [...] series) 2003 Regular Well Visit/Exam 18-64 2008 HPV Vaccines (1 - 3-dose SCDM series) 2017 Influenza Vaccine (#1) 2025 DTaP/Tdap/Td Vaccine (7 - Td or Tdap) 06/12/2028 06/12/2018, 11/01/1995, 01/01/1992, Additional history exists Hepatitis B Screening Completed 09/01/1999 , 03/31/1999, 03/03/1999 Pneumococcal vaccine <65 Aged Out No longer eligible based on patient's age to complete this topic Procedures Procedure Name Priority Date/Time Associated Diagnosis Comments T3, FREE Routine 03/10/2025 2:13 PM CDT Hypothyroidism, unspecified type Abnormal thyroid function test T4, FREE Routine 03/10/2025 2:13 PM CDT Hypothyroidism, unspecified type Abnormal thyroid function test TSH Routine 03/10/2025 2:13 PM CDT Hypothyroidism, unspecified type Abnormal thyroid function test LIPID PANEL Routine 03/10/2025 2:13 PM CDT Dyslipidemia from Last 3 Months Results * T3, free (03/10/2025 2:13 PM CDT) Blood Moshe Tong MD LAB BLOOD ORDERABLES Final Resul t Performing Organization Address [facility] de Phone Number EXTERNAL LAB * T4, free (03/10/2025 2:13 PM CDT) Blood Moshe Tong MD LAB BLOOD ORDERABLES Final Resul t Performing Organization Address [facility] de Phone Number EXTERNAL LAB * TSH (03/10/2025 2:13 PM CDT) Blood Moshe Tong MD LAB BLOOD ORDERABLES Final Resul t Performing Organization Address [facility] Co de Phone Number EXTERNAL LAB * Lipid panel (03/10/2025 2:13 PM CDT) Blood Result [facility] Moshe Tong MD LAB BLOOD ORDERABLES Final Resul t Performing Organization Address [facility] de Phone Number EXTERNAL LAB from Last 3 Months Insurance [place] ACC[employer] OOS Care Teams Paste Up Worker Relationship Specialty Start Date End Date Jennifer Krishnan MD [address] [place] [address] PCP - General Internal Medicine 04/21/23 Jennifer Krishnan MD [address] [place] [address] Referring Physician Internal Medicine 06/11/18
--- OUTSIDE RECORDS SUMMARY | 2025-03-14 13:08 | XMS_ITS | Referral Summary ---
Author Organization [facility] Address [address] [place] [address] Care Team Providers Care Rn Primary Care Name Role Phone Jennifer Krishnan MD Unavailable [phone] Jennifer Krishnan MD Primary Care Provider [phone] Encounters Date Type Department Care Team Description 03/12/2025 Telephone [facility] Endocrinology Metabolism and Lipid [address] [place] [address] [place] [address] Rosa De La Torre case repairer Results from Last 3 Months Allergies No known active allergies Medications escitalopram [...] on file 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 Gender Identity Not on file Sexual Orientation [...] CDT Plan of Treatment Not on file Procedures Procedure Name Priority Date/Time Associated Diagnosis [...] T3, free (03/10/2025 2:13 PM CDT) Blood us Moshe Tong MD LAB BLOOD ORDERABLES Final Resul t EXTERNAL LAB * T4, free (03/10/2025 2:13 PM CDT) Blood Moshe Tong MD LAB BLOOD ORDERABLES Final Resul t Performing Organization Address [facility] de Phone Number EXTERNAL LAB * TSH (03/10/2025 2:13 PM CDT) Blood Moshe Tong MD LAB BLOOD ORDERABLES Final Resul t Performing Organization Address [facility] de Phone Number EXTERNAL LAB * Lipid panel (03/10/2025 2:13 PM CDT) Blood Moshe Tong MD LAB BLOOD ORDERABLES Final Resul t Performing Organization Address [facility] de Phone Number EXTERNAL LAB from Last 3 Months Insurance [employer] OOS BLUE ACCESS OOS Care Teams Rn Primary Care Relationship Specialty Start Date End Date Jennifer Krishnan MD [address] [place] [address] PCP - General Internal Medicine 04/21/23 Jennifer Krishnan MD [address] [place] [address] Referring Physician Internal Medicine 06/11/18
--- NOTE | 2025-03-17 11:58 | WPDHOLTEREM ---
Holter/Event Monitor Holter/Event Monitor Date of procedure: 03/14/25 Holter/Event Procedure: 24 Hr Holter Monitor Indications: Palpitations Conclusion: 1. 24 hour holter monitor on 03/14/25. 2. Underlying rhythm is sinus rhythm. HR range 64-143 bpm; average HR 86 bpm. 3. There are 12 premature supraventricular complexes. No supraventricular tachycardia. 4. There are 217 premature ventricular complexes and 4 ventricular trigeminy. No ventricular tachycardia. 5. No significant pauses greater than 2 seconds. 6. Patient reports symptoms of skipped beats, palpitations which demonstrate sinus rhythm, HR range 88-122 bpm with 2 episodes with PVC's.
== END 2025-03-14 13:06 | disposition home or self-care (01) ==
PROVIDERS: PCP Internal Medicine; Visit Provider Internal Medicine
DX: R00.2 Palpitations (principal); E04.9 Nontoxic goiter, unspecified
CPT/HCPCS: 76536; 93225; 93226